=== PATIENT | male | born 1945 | race Hispanic/Latino ===

== ENCOUNTER 2020-12-16 13:26 | Observation (INO) | payer OTHER ==
--- NOTE | 2020-12-16 14:19 | RAD REPORT ---
EXAM DESCRIPTION: RAD - Chest Single View - 12/16/2020 2:04 pm CLINICAL HISTORY: DYSPNEA, abnormal EKG COMPARISON: February 2017 TECHNIQUE: AP portable chest image was obtained 12/16/2020 2:04 pm . FINDINGS: Lung volumes are low accentuating interstitial pattern. No peripheral mass or consolidatio n. No significant failure or volume overload. Lung base atelectasis is present. Heart and vasculature are normal. No measurable pleural effusion and no pneumothorax. No acute bony abnormality seen. No a cute aortic findings suspected. IMPRESSION: Limited portable examination showing lung base atelectasis.
[2020-12-16 14:55] LABS: Absolute Lymphocytes (CBC) 1.5 K/uL (0.7-4.9); Basophils % 0.8 % (0-1.3); Hematocrit 47.8 % (39.6-49.0); Lymphocytes % 15.4 % (15.3-44.8); MPV 9.4 fL (7.6-11.3); RBC Red Blood Cell Count 5.15 M/uL (4.33-5.43)
[2020-12-16 14:58] LABS: Protime INR 0.99
[2020-12-16 15:00] LABS: BUN Blood Urea Nitrogen 16 mg/dL (7-18); Bicarbonate 26 mmol/L (21-32); Glucose Level 110 mg/dL (74-106); NT PRO-BNP 118 pg/mL (<450); Sodium Level 141 mmol/L (136-145); Troponin (Emerg Dept Use Only) < 0.02 ng/mL (0.0-0.045)
--- NOTE | 2020-12-16 15:22 | EDPHYS ---
Physician Documentation [facility] Name: Neftali Beasley Age: 75 yrs Sex: Male : 1945 Arrival Date: 12/16/2020 Time: 13:29 Bed 2 Private MD: ED Physician Gerson Taylor HPI: 12/16 14:16 This 75 yrs old Male presents to ER via Wheelchair with complaints of rn Irregular Pulse. 14:16 The patient has shortness of breath at rest, with light activity. Onset: The rn symptoms/episode began/occurred this morning. Duration: The symptoms are intermittent. The patient's shortness of breath is aggravated by nothing, is alleviated by nothing. Severity of symptoms: At their worst the symptoms were mild in the emergency department the symptoms are unchanged. The patient has not experienced similar symptoms in the past. Reports sob that began today, but wasn't bad, seen by PCP for regular checkup, had abnormal ecg, sent here for ECG, ecg outpt showed afib, pt denies hx of afib. No chest pain. No recent illness. . Historical: - Allergies: 13:33 No Known Allergies; ss - Home Meds: 15:54 "unknown bp" [Active]; Metformin Oral [Active]; tw2 - PMHx: 15:54 Hypertension; Diabetes - NIDDM; poor historian; tw2 - PSHx: 15:54 knee surgery b/l; tw2 - Immunization history:: Adult Immunizations up to date. - Social history:: Smoking status: Patient denies any tobacco usage or history of. - Family history:: not pertinent. - Hospitalizations: : No recent hospitalization is reported. ROS: 14:16 Constitutional: Negative for fever, chills, and weight loss, Eyes: Negative for injury, rn pain, redness, and discharge, Neck: Negative for injury, pain, and swelling, Cardiovascular: Negative for chest pain, and edema, Respiratory: Negative for cough, wheezing, and pleuritic chest pain, Abdomen/GI: Negative for abdominal pain, nausea, vomiting, diarrhea, and constipation, Back: Negative for injury and pain, MS/Extremity: Negative for injury and deformity, Skin: Negative for injury, rash, and discoloration, Neuro: Negative for headache, numbness, tingling, and seizure. Exam: 14:16 Constitutional: Overweight male, no acute distress Head/Face: Normocephalic, rn atraumatic. ENT: No stridor Cardiovascular: Regular rate, irregular rhythm Respiratory: + mild tachypnea, no retractions Abdomen/GI: soft, non-tender Skin: Warm, dry MS/ Extremity: Pulses equal, no cyanosis. Neurovascular intact. Full, normal range of motion. Equal circumference. Neuro: Awake and alert, GCS 15 Vital Signs: 13:30 BP 153 / 64; Pulse 72; Resp 20; Pulse Ox 94% on R/A; tw2 13:32 BP 153 / 64; Pulse 71; Resp 18; Temp 97.7(TE); Pulse Ox 92% on R/A; Weight 131.54 kg; ss Height 5 ft. 6 in. (167.64 cm); Pain 0/10; 14:05 BP 159 / 62; Pulse 66; Resp 20; Pulse Ox 85% on R/A; tw2 14:30 Pulse Ox 94% on 2 lpm NC; tw2 15:10 BP 165 / 53; Pulse 89; Resp 17; Pulse Ox 95% on 2 lpm NC; tw2 15:45 BP 142 / 71; Pulse 50; Resp 19; Pulse Ox 95% on 2 lpm NC; tw2 16:46 BP 142 / 55; Pulse 63; Resp 22; Pulse Ox 94% on 2 lpm NC; tw2 17:38 BP 160 / 55; Pulse 63; Resp 17; Pulse Ox 96% on 2 lpm NC; hb 18:22 BP 98 / 42; Pulse 78; Resp 19; Pulse Ox 95% on 2 lpm NC; hb 19:30 BP 122 / 49; Pulse 69; Resp 17; Pulse Ox 95% on 2 lpm NC; rv 20:17 BP 127 / 68; Pulse 67; Resp 19; Pulse Ox 95% on 2 lpm NC; rv 13:32 Body Mass Index 46.81 (131.54 kg, 167.64 cm) ss 14:05 provider notified, pt placed on 2 L nc, will continue to monitor tw2 MDM: 13:30 Patient medically screened. rn 15:19 Differential diagnosis: Pneumothorax pulmonary edema, angina, arhythmia, afib, rn bigeminy, pulmonary edema. Data reviewed: vital signs, nurses notes, lab test result(s), EKG, radiologic studies, plain films, and as a result, I will admit patient. Counseling: I had a detailed discussion with the patient and/or guardian regarding: the historical points, exam findings, and any diagnostic results supporting the discharge/admit diagnosis, lab results, radiology results, the need for further work-up and treatment in the hospital. Medical screen evaluation completed. EMTALA emergency medical condition absent. Response to treatment: There is no appreciated change of the patient's symptoms at this time, and as a result, I will admit patient. Admission orders: after a detailed discussion of the patient's condition and case, the admit orders are written by me. ED course: Pt with ecg that looks like afib given new onset and assoc with dyspnea, given lovenox, and admitted for cardiology consultation. . 12/16 13:36 Order name: Basic Metabolic Panel; Complete Time: 15:05 rn 12/16 13:36 Order name: CBC with Diff; Complete Time: 15:11 rn 12/16 13:36 Order name: Magnesium; Complete Time: 15: rn 12/16 13:36 Order name: NT PRO-BNP; Complete Time: 15:05 rn 12/16 13:36 Order name: PT-INR; Complete Time: 15:11 rn 12/16 13:36 Order name: Troponin (emerg Dept Use Only); Complete Time: 15:05 rn 12/16 13:36 Order name: XRAY Chest (1 view); Complete Time: 14:21 rn 12/16 13:36 Order name: EKG; Complete Time: 13:37 rn 12/16 15:55 Order name: COVID-19 : Document "Date of Symptom Onset" if Symptomatic. tw2 12/16 15:55 Order name: CORONAVIRUS EDMI 12/16 16:05 Order name: CONS Physician Consult [facility] 12/16 17:31 Order name: SARS-COV-2 RT PCR EDMI 12/16 13:36 Order name: Cardiac monitoring; Complete Time: 15:40 rn 12/16 13:36 Order name: EKG - Nurse/Tech; Complete Time: 15:40 rn 12/16 13:36 Order name: IV Saline Lock; Complete Time: 15:40 rn 12/16 13:36 Order name: Labs collected and sent; Complete Time: 15:40 rn 12/16 13:36 Order name: O2 Per Protocol; Complete Time: 15:40 rn 12/16 13:36 Order name: O2 Sat Monitoring; Complete Time: 15:40 rn 12/16 17:29 Order name: Diet Regular; Complete Time: 17:30 bd Administered Medications: 16:05 Not Given (Patient Refused; ER provider notified and hospitalist): Lovenox 100 mg Sub-Q tw2 once Disposition: 12/16/20 15:21 Hospitalization ordered by Miguel Taylor for Observation. Preliminary diagnosis are Unspecified atrial fibrillation, Dyspnea, unspecified. - Bed requested for Telemetry/MedSurg (observation). - Status is Observation. wh - Condition is Stable. - Problem is new. - Symptoms are unchanged. Signatures: Dispatcher [employer] EDMS Gerson Taylor MD MD rn Smirch, Shelby, RN RN Jennifer Loo RN RN Vicki Hernandez RN RN 2 Evi Messer RN RN Corrections: (The following items were deleted from the chart) 19:51 15:21 Hospitalization Ordered by Miguel Taylor MD for Observation. Preliminary cg diagnosis is Unspecified atrial fibrillation; Dyspnea, unspecified. Bed requested for Telemetry/MedSurg (observation). Status is Observation. Condition is Stable. Problem is new. Symptoms are unchanged. rn 20:41 19:51 12/16/2020 15:21 Hospitalization Ordered by Miguel Taylor MD for Observation. Preliminary diagnosis is Unspecified atrial fibrillation; Dyspnea, unspecified. Bed requested for Telemetry/MedSurg (observation). Status is Observation. Condition is Stable. Problem is new. Symptoms are unchanged. cg
--- NOTE | 2020-12-16 15:22 | ER ---
Nurse's Notes [facility] Name: Neftali Beasley Age: 75 yrs Sex: Male : 1945 Arrival Date: 12/16/2020 Time: 13:29 Bed 2 Private MD: Diagnosis: Unspecified atrial fibrillation;Dyspnea, unspecified Presentation: 12/16 13:30 Chief complaint: pt from out patient EKG department, states his doctor sent him here tw2 because of his EKG interpretation. Chief complaint: Patient states: "im a little short of breath as well, more than normal". Coronavirus screen: shortness of breath, Client presents with at least one sign or symptom that may indicate coronavirus-19. Standard/surgical mask placed on the client. Provider contacted for isolation considerations. Ebola Screen: Patient denies travel to an Ebola-affected area in the 21 days before illness onset. Initial Sepsis Screen: Does the patient meet any 2 criteria? No. Patient's initial sepsis screen is negative. Does the patient have a suspected source of infection? No. Patient's initial sepsis screen is negative. Risk Assessment: Do you want to hurt yourself or someone else? Patient reports no desire to harm self or others. Note provider at bedside at this time. Onset of symptoms was December 16, 2020. 13:30 Method Of Arrival: Wheelchair tw2 13:30 Acuity: ABDULKADIR 2 tw2 13:32 Chief complaint: Patient states: Sent by PCP for irregular EKG. Pt has no complaints at this time. Coronavirus screen: Client denies travel out of the [place] in the last 14 days. Ebola Screen: Patient denies exposure to infectious person. Patient denies travel to an Ebola-affected area in the 21 days before illness onset. Initial Sepsis Screen: Does the patient meet any 2 criteria? No. Patient's initial sepsis screen is negative. Does the patient have a suspected source of infection? No. Patient's initial sepsis screen is negative. Risk Assessment: Do you want to hurt yourself or someone else? Patient reports no desire to harm self or others. Onset of symptoms is unknown. 13:32 Method Of Arrival: Wheelchair Historical: - Allergies: 13:33 No Known Allergies; ss - Home Meds: 15:54 "unknown bp" [Active]; Metformin Oral [Active]; tw2 - PMHx: 15:54 Hypertension; Diabetes - NIDDM; poor historian; tw2 - PSHx: 15:54 knee surgery b/l; tw2 - Immunization history:: Adult Immunizations up to date. - Social history:: Smoking status: Patient denies any tobacco usage or history of. - Family history:: not pertinent. - Hospitalizations: : No recent hospitalization is reported. Screenin:33 Abuse screen: Denies threats or abuse. Denies injuries from another. Nutritional ss screening: No deficits noted. Tuberculosis screening: Never had TB. Fall Risk None identified. Assessment: 13:30 General: Appears in no apparent distress. obese, Behavior is calm, cooperative, tw2 appropriate for age. Pain: Denies pain. Neuro: Level of Consciousness is awake, alert, obeys commands, Oriented to person, place, time, situation. Cardiovascular: Capillary refill < 3 seconds Patient's skin is warm and dry. Respiratory: Reports shortness of breath at rest on exertion since today Airway is patent Respiratory effort is even, unlabored, Respiratory pattern is regular, symmetrical. GI: No signs and/or symptoms were reported involving the gastrointestinal system. Abdomen is round non-distended, obese. : No signs and/or symptoms were reported regarding the genitourinary system. EENT: No signs and/or symptoms were reported regarding the EENT system. Derm: No signs and/or symptoms reported regarding the dermatologic system. Musculoskeletal: Range of motion: intact in all extremities. 13:30 Pain: Pain does not radiate. Pain began suddenly. tw2 14:30 Reassessment: Patient appears in no apparent distress at this time. No changes from tw2 previously documented assessment. Patient and/or family updated on plan of care and expected duration. Pain level reassessed. 15:46 Reassessment: provider Dr. Miguel Taylor at bedside at this time. tw2 16:46 Reassessment: Patient appears in no apparent distress at this time. No changes from tw2 previously documented assessment. Patient and/or family updated on plan of care and expected duration. Pain level reassessed. 17:38 Reassessment: Patient appears in no apparent distress at this time. No changes from hb previously documented assessment. Patient and/or family updated on plan of care and expected duration. Pain level reassessed. 18:21 Reassessment: Patient appears in no apparent distress at this time. No changes from hb previously documented assessment. Patient and/or family updated on plan of care and expected duration. Pain level reassessed. 19:15 Reassessment: Patient appears in no apparent distress at this time. Patient and/or wh family updated on plan of care and expected duration. Pain level reassessed. Patient is alert, oriented x 3, equal unlabored respirations, skin warm/dry/pink. Vital Signs: 13:30 BP 153 / 64; Pulse 72; Resp 20; Pulse Ox 94% on R/A; tw2 13:32 BP 153 / 64; Pulse 71; Resp 18; Temp 97.7(TE); Pulse Ox 92% on R/A; Weight 131.54 kg; ss Height 5 ft. 6 in. (167.64 cm); Pain 0/10; 14:05 BP 159 / 62; Pulse 66; Resp 20; Pulse Ox 85% on R/A; tw2 14:30 Pulse Ox 94% on 2 lpm NC; tw2 15:10 BP 165 / 53; Pulse 89; Resp 17; Pulse Ox 95% on 2 lpm NC; tw2 15:45 BP 142 / 71; Pulse 50; Resp 19; Pulse Ox 95% on 2 lpm NC; tw2 16:46 BP 142 / 55; Pulse 63; Resp 22; Pulse Ox 94% on 2 lpm NC; tw2 17:38 BP 160 / 55; Pulse 63; Resp 17; Pulse Ox 96% on 2 lpm NC; hb 18:22 BP 98 / 42; Pulse 78; Resp 19; Pulse Ox 95% on 2 lpm NC; hb 19:30 BP 122 / 49; Pulse 69; Resp 17; Pulse Ox 95% on 2 lpm NC; rv 20:17 BP 127 / 68; Pulse 67; Resp 19; Pulse Ox 95% on 2 lpm NC; rv 13:32 Body Mass Index 46.81 (131.54 kg, 167.64 cm) ss 14:05 provider notified, pt placed on 2 L nc, will continue to monitor tw2 ED Course: 13:29 Patient arrived in ED. tw2 13:30 Gerson Taylor MD is Attending Physician. rn 13:33 Triage completed. ss 13:33 Arm band placed on right wrist. ss 13:33 Patient has correct armband on for positive identification. Bed in low position. Call light in reach. school lunch monitor on. Pulse ox on. NIBP on. 14:00 Inserted saline lock: 20 gauge in right antecubital area, using aseptic technique. tw2 ,using aseptic technique. JR Cerrato Blood collected. 14:04 XRAY Chest (1 view) In Process Unspecified. EDMS 14:04 X-ray completed. Portable x-ray completed in exam room. Patient tolerated procedure ml well. 14:10 Oxygen administration via nasal cannula \\T\\ 2L/min. tw2 14:10 EKG done, by ED staff, reviewed by Gerson Taylor MD. 3 15:21 Gerson Taylor MD is Hospitalizing Provider. rn 15:21 Miguel Taylor MD is Hospitalizing Provider. rn 15:27 Vicki Hernandez, JR is Primary Nurse. tw2 19:14 Primary Nurse role handed off by Vicki Hernandez, JR mw2 20:17 Miah Mtz, JR is Primary Nurse. rv 20:19 No provider procedures requiring assistance completed. IV is patent, with fluids rv infusing freely, Patient admitted, IV remains in place. Administered Medications: 16:05 Not Given (Patient Refused; ER provider notified and hospitalist): Lovenox 100 mg Sub-Q tw2 once Outcome: 15:21 Decision to Hospitalize by Provider. rn 20:19 Admitted to Med/surg accompanied by tech, via stretcher, room 212, Other SBAR, EKG Report called to Ashely NORRIS 20:19 Condition: good 20:19 Instructed on the need for admit. 20:41 Patient left the ED. Signatures: Dispatcher [employer] EDTN Ellei Iraheta Roman, MD MD rn Smirch, Shelby, RN RN Blossom Young RN RN Vicki Hernandez RN RN tw2 Vanita Godoy 3 Evi Messer RN RN Eliu Wiggins 2 Miah Mtz, JR RN rv Corrections: (The following items were deleted from the chart) 13:35 13:32 Acuity: ABDULKADIR 3 ss tw2 14:10 14:05 BP 159 / 62; Pulse 66bpm; Resp 20bpm; Pulse Ox 85% RA; provider notified; tw2 tw2 20:41 20:19 Admitted to Med/surg accompanied by tech, via stretcher, room 212, Other SBAR, wh EKG Report called to MARIETTA NORRIS rv
[2020-12-16] MEDS ORDERED: ENOXAPARIN 100 MG/ML SYR SQ ONE (15:39)
--- NOTE | 2020-12-16 16:07 | P.HP ---
Certification for Inpatient Patient admitted to: Observation With expected LOS: <2 Midnights Practitioner: I am a practitioner with admitting privileges, knowledge of patient current condition, hospital course, and medical plan of care. Services: Services provided to patient in accordance with Admission requirements found in Title 42 Section 412.3 of the Code of Federal Regulations Patient History Date of Service: 12/16/20 Reason for admission: Dyspnea, irregular rhythm History of Present Illness: 75yo M, PMH: DM 2 (non insulin depended), HTN, and patient is unsure of the rest of his past medical history. He is a poor historian. He states he has had with worsened dyspnea over the past 24 hr. He is only able to walk 20-30 feet, where previously he could walk much further. He saw his PCP for a routine visit today, was noted to have an irregular rhythm and was sent to the ED. In the ED, and the monitor was concerning for atrial fibrillation, however EKGs revealed some sinus bradycardia PACs, possibly a bifascicular block. Patient was unsure if he has ever had this before. He states he saw her clay artist many years ago and was told not to worry about something, but he is unsure what that "something" is. Lab work was otherwise unremarkable. CXR okay as well. BNP normal. He also reports recently unable to put his shoes on due to inability to bend down. He attributes that to being out of shape / his abdomen. Does not have this difficulty 3 weeks ago. Patient otherwise denies any recent fevers, chills, chest pain, abdominal pain, dysuria, diarrhea. - Past Medical/Surgical History -: [id number] diabetes -: HTN -: Bilateral knee surgery -: Tonsillectomy - Social History Smoking Status: Former smoker (Quit several decades ago) Alcohol use: No Place of Residence: Home Review of Systems 10-point ROS is otherwise unremarkable Physical Examination - Physical Exam General: Alert, In no apparent distress, Oriented x3, Obese HEENT: Sclerae nonicteric Respiratory: Diminished (At bases bilaterally, otherwise clear) Cardiovascular: Edema (Trace-1+ to the mid tibia), Irregular heart rate/rhythm Gastrointestinal: Soft and benign, Non-distended, No tenderness Musculoskeletal: No erythema, No tenderness Integumentary: No rashes Neurological: Normal speech, Normal affect - Studies Laboratory Data (last 24 hrs) 12/16/20 14:30: PT 11.4, INR 0.99 12/16/20 14:30: WBC 9.70, Hgb 16.0, Hct 47.8, Plt Count 193 12/16/20 14:30: Sodium 141, Potassium 4.0, BUN 16, Creatinine 1.24, Glucose 110 H, Magnesium 2.0 Assessment and Plan - Advance Directives Does patient have a Living Will: No Does patient have a Durable POA for Healthcare: No Physician Review Additional Text: Problem list Dyspnea on exertion Irregular rhythm, PACs, bifascicular block DM2, non-insulin dependent HTN ?CHF -will bring patient in for obs, monitor on telemetry -possible history of CHF - can lead to [place], reports "water pill" at home but unsure what or how much -will obtain echocardiogram -BNP ok, CXR ok -will consult cardiology regarding rhythm -will need to obtain home medications and restart as appropriate -patient does not seem significantly volume overloaded -consult PT VTE: lovenox code: DNR Dispo: anticipate dc home tomorrow pending improvement Time Spent Managing Pts Care (In Minutes): 60
[2020-12-16] MEDS: INSULIN -REGULAR HUMAN 50 UNIT/0.5 ML ML SQ SCH (21:00)
[2020-12-16 21:24] LABS: Troponin I < 0.02 ng/mL (0.0-0.045)
[2020-12-16 22:26] VITALS: BMI 46.8
[2020-12-17 03:46] LABS: Absolute Lymphocytes (CBC) 1.5 K/uL (0.7-4.9); Basophils % 1.1 % (0-1.3); Hematocrit 45.8 % (39.6-49.0); MPV 9.7 fL (7.6-11.3); RBC Red Blood Cell Count 4.86 M/uL (4.33-5.43)
[2020-12-17 03:52] LABS: Albumin 3.7 g/dL (3.4-5.0); Bilirubin Total 0.5 mg/dL (0.2-1.0); Magnesium 1.9 mg/dL (1.8-2.4); Potassium 3.6 mmol/L (3.5-5.1); Protein, Total 6.7 g/dL (6.4-8.2)
[2020-12-17] MEDS: carvediloL 12.5 MG TAB PO SCH ×2 (06:03→17:52)
[2020-12-17] MEDS: AMLODIPINE 10 MG TAB PO SCH (06:03)
[2020-12-17] MEDS: INSULIN -REGULAR HUMAN 50 UNIT/0.5 ML ML SQ SCH ×4 (07:30→20:37)
[2020-12-17 08:44] LABS: Urine Appearance CLEAR; Urine Blood NEGATIVE (NEG); Urine Color YELLOW; Urine Glucose NEGATIVE (NEG); Urine Protein 2+ (NEG); Urine Specific Gravity 1.025 (1.005-1.030); Urine pH 5.5 (5.0-7.0)
[2020-12-17 08:50] LABS: Urine Bilirubin 1+ (NEG); Urine Microscopic Reflex ORDER UMIC
[2020-12-17 08:58] LABS: Urine Bacteria NONE SEEN /HPF (NONE SEEN); Urine RBC <5 /HPF (NONE SEEN)
[2020-12-17 08:59] LABS: Urine Mucus MOD /HPF (NONE SEEN)
[2020-12-17] MEDS ORDERED: POTASSIUM 25 MEQ EFFERV TAB PO ONE (09:00)
[2020-12-17] MEDS: ENOXAPARIN 40 MG/0.4 ML SQ SCH (09:15)
[2020-12-17] MEDS: lisinopriL 20 MG TAB PO SCH (09:19)
--- NOTE | 2020-12-17 16:18 | P.PN ---
Subjective Date of Service: 12/17/20 Chief Complaint: Dyspnea, irregular rhythm Patient denies any complain. He denies shortness of breath at this time. His blood pressure was severely elevated in the morning. Systolic BP has now improved to the 150s. Physical Examination - Vital Signs Temperature: 98.0 F Blood Pressure: 153/70 Pulse: 68 Respirations: 16 Pulse Ox (%): 94 - Physical Exam General: In no apparent distress, Oriented x3, Obese HEENT: Mucous membr. moist/pink, EOMI Neck: Supple, JVD not distended Respiratory: Clear to auscultation bilaterally, Normal air movement, Diminished Cardiovascular: Normal S1 S2, Edema (Trace bilateral lower extremity edema), Irregular heart rate/rhythm Gastrointestinal: Normal bowel sounds, Soft and benign, Non-distended, No tenderness Musculoskeletal: No swelling, No tenderness Integumentary: No rashes, No erythema Neurological: Normal speech, Normal strength at 5/5 x4 extr, Cranial nerves 3-12 intact Assessment And Plan - Current Problems (Diagnosis) (1) Dyspnea Current Visit: Yes Status: Acute (2) Accelerated hypertension Current Visit: Yes Status: Acute (3) Abnormal EKG Current Visit: Yes Status: Acute (4) Diabetes mellitus type 2 in obese Current Visit: Yes Status: Acute (5) Morbid obesity Current Visit: Yes Status: Acute - Plan Troponin trended negative. Patient states his symptoms have resolved. Echocardiogram completed, result is pending. Cardiology-Dr. Aleman to evaluate. Chest x-ray shows atelectasis. Continue current antihypertensives. Daily weight. Jacquelin [email or web address]
--- NOTE | 2020-12-17 18:43 | EKG ---
Test Date: 2020-12-16 Test Time: 14:40:48 Building Code Administrator: KENIA MEASUREMENT RESULTS: Intervals: Rate: 68 [place]: QRSD: 160 QT: 492 QTc: 523 [place]: P: [place]: QRS: 162 T: 25 INTERPRETIVE STATEMENTS: Atrial fibrillation with a competing junctional pacemaker with premature ventricular or aberrantly conducted complexes Right bundle branch block Left posterior fascicular block Bifascicular block Inferior infarct, age undetermined Abnormal ECG Compared to ECG 12/16/2020 13:00:27 Left posterior fascicular block now present Bifascicular block now present Myocardial infarct finding still present Electronically Signed On 12-17-20 18:40:29 SURVEILLANCE OPERATOR by Rk Aleman
[2020-12-17] MEDS: HYDRALAZINE HCL 25 MG TABLET PO SCH (20:36)
[2020-12-18] MEDS: carvediloL 12.5 MG TAB PO SCH ×2 (05:36→17:08)
[2020-12-18 05:58] LABS: Absolute Lymphocytes (CBC) 1.3 K/uL (0.7-4.9); Basophils % 0.6 % (0-1.3); Hematocrit 43.5 % (39.6-49.0); Lymphocytes % 20.2 % (15.3-44.8); MPV 9.2 fL (7.6-11.3); RBC Red Blood Cell Count 4.67 M/uL (4.33-5.43)
[2020-12-18 06:12] LABS: Phosphorus 3.3 mg/dL (2.5-4.9)
--- NOTE | 2020-12-18 07:03 | CON ---
Date of Consultation: 12/17/[address] Silva's service on 12/16/2020. Reason For Consultation: Congestive heart failure. History Of Present Illness: Mr. Beasley is a 75-year-old male with history of obesity, hypertension , diabetes, and dyslipidemia. He came in with shortness of breath, pedal edema, PND, orthopnea. Den ied any chest pain, nausea, vomiting, diaphoresis. Denied any palpitation or syncope. He was initia lly thought to be in atrial fibrillation and his EKG was suspicious, but on further inspection it rev ealed sinus bradycardia with PACs with a right bundle branch pattern. He had a remote myocardial inf arction. Past Medical History: As stated above. Allergies: NONE. Review of Systems: Positive for him being a do not resuscitate. Social History: Negative. Family History: Noncontributory. Medications: At home include glyburide with metformin combination, hydrochlorothiazide, Actos, Zocor , Vasotec, Norvasc, metoprolol, and hydralazine. Physical Examination: Vital Signs: He is obese, but his vital signs are stable. He was in sinus bradycardia with PACs. HEENT: Negative. Neck: Supple without any bruit, lymphadenopathy, JVD, or thyromegaly. Chest: Reveals some rales at bases. Cardiac: Revealed a regular rhythm and rate with an S4 gallops. No murmurs or rubs. Abdomen: Obese but benign. Extremities: Revealed 2 to 3+ edema. Diagnostic Data: As listed earlier. Impression And Plan: 1.Possible acute on chronic diastolic congestive heart failure exacerbation. 2.Hypertension. 3.Obesity. 4.Diabetes. 5.Dyslipidemia. 6.Do not resuscitate status. I agree with the 2D echocardiogram. He should be on IV Lasix. He is already on ANY inhibitor, calci um channel blockers as well as a beta-charisse. Mr. Beasley eventually will need a stress test once the congestive heart failure resolved. We will continue to follow him along. NOAM/DAVINA Voice ID: [id number] Report ID: [id number]
[2020-12-18] MEDS: INSULIN -REGULAR HUMAN 50 UNIT/0.5 ML ML SQ SCH ×4 (07:30→21:00)
[2020-12-18] MEDS ORDERED: FUROSEMIDE 40 MG/4 ML VIAL IV ONE (08:35)
[2020-12-18] MEDS: hydroCHLOROthiazide 12.5 MG CAP PO SCH (08:45)
[2020-12-18] MEDS: AMLODIPINE 10 MG TAB PO SCH (08:45)
[2020-12-18] MEDS: lisinopriL 20 MG TAB PO SCH (08:45)
[2020-12-18] MEDS: HYDRALAZINE HCL 25 MG TABLET PO SCH ×2 (08:45→21:37)
[2020-12-18] MEDS: ENOXAPARIN 40 MG/0.4 ML SQ SCH (08:46)
--- NOTE | 2020-12-18 11:56 | EKG ---
Test Date: 2020-12-17 Test Time: 09:44:04 Pc Technician: SHILPA MEASUREMENT RESULTS: Intervals: Rate: 68 [place]: QRSD: 154 QT: 464 QTc: 493 [place]: P: [place]: QRS: 165 T: 37 INTERPRETIVE STATEMENTS: SB/PAC Right bundle branch block Left posterior fascicular block Bifascicular block Abnormal ECG Compared to ECG 12/16/2020 14:40:48 Ventricular premature complex(es) no longer present Myocardial infarct finding no longer present Bifascicular block still present Electronically Signed On 12-18-20 11:54:03 ENGINE ROOM OPERATOR by Rk Aleman
--- NOTE | 2020-12-18 11:58 | ECHO ---
HEIGHT: 5 ft 6 in WEIGHT: 290 lb 4.8 oz DATE OF STUDY: 12/17/[address]: Miguel Taylor MD 2-DIMENSIONAL: YES M.MODE: YES DOPPLER: YES COLOR FLOW: YES TDS: YES PORTABLE: DEFINITY: BUBBLE STUDY: DIAGNOSIS: ARRHYTHMIA CARDIAC HISTORY: CATHERIZATION: SURGERY: PROSTHETIC VALVE: PACEMAKER: MEASUREMENTS (cm) DIASTOLIC (NORMALS) SYSTOLIC (NORMALS) IVSd 1.3 (0.6-1.2) LA Diam 4.8 (1.9-4.0) LVEF 53% LVIDd 5.4 (3.5-5.7) LVIDs 3.9 (2.0-3.5) %FS 28% LVPWd 1.5 (0.6-1.2) Ao Diam 3.0 (2.0-3.7) 2 DIMENSIONAL ASSESSMENT: RIGHT ATRIUM: NORMAL LEFT ATRIUM: DILATED RIGHT VENTRICLE: NORMAL LEFT VENTRICLE: LEFT VENTRICULAR HYPERTROPHY TRICUSPID VALVE: NORMAL MITRAL VALVE: NORMAL PULMONIC VALVE: NORMAL AORTIC VALVE: NORMAL PERICARDIAL EFFUSION: NONE AORTIC ROOT: NORMAL LEFT VENTRICULAR WALL MOTION: DIASTOLIC DYSFUNCTION DOPPLER/COLOR FLOW: NORMAL COMMENTS: DIASTOLIC DYSFUNCTION. NORMAL LEFT VENTRICULAR EJECTION FRACTION. LEFT VENTRICULAR HYPERTROPHY CONCENTRIC. LEFT ATRIAL ENLARGEMENT. TECHNOLOGIST: GARRY WADE
--- NOTE | 2020-12-18 15:52 | P.PN ---
Subjective Date of Service: 12/18/20 Chief Complaint: Dyspnea, irregular rhythm Patient denies any complain. He denies shortness of breath at this time. His blood pressure has improved. He is requiring oxygen. Physical Examination - Vital Signs Temperature: 97.8 F Blood Pressure: 142/51 Pulse: 70 Respirations: 20 Pulse Ox (%): 97 - Physical Exam General: Alert, In no apparent distress, Oriented x3 Neck: Supple, JVD not distended Respiratory: Diminished, Crackles/rales (Mild bibasilar crackles) Cardiovascular: Regular rate/rhythm, Normal S1 S2, Edema (Trace bilateral lower extremity edema) Gastrointestinal: Soft and benign, Non-distended, No tenderness Musculoskeletal: No swelling, No erythema Integumentary: No rashes Neurological: Normal speech, Normal strength at 5/5 x4 extr, Cranial nerves 3-12 intact Assessment And Plan - Current Problems (Diagnosis) (1) Dyspnea Current Visit: Yes Status: Acute (2) Accelerated hypertension Current Visit: Yes Status: Acute (3) Abnormal EKG Current Visit: Yes Status: Acute (4) Diabetes mellitus type 2 in obese Current Visit: Yes Status: Acute (5) Morbid obesity Current Visit: Yes Status: Acute - Plan Troponin trended negative. Patient states his symptoms have resolved. Echocardiogram completed. It did report normal EF and left ventricular hypertrophy. Cardiology-Dr. Aleman input appreciated. Continue IV Lasix. I suspect patient also has obesity hypoventilation. Chest x-ray shows atelectasis. Continue current antihypertensives. Arranged for home oxygen. Physician Review Additional Text: Problem list Dyspnea on exertion Irregular rhythm, PACs, bifascicular block DM2, non-insulin dependent HTN ?CHF -will bring patient in for obs, monitor on telemetry -possible history of CHF - can lead to [facility], reports "water pill" at home but unsure what or how much -will obtain echocardiogram -BNP ok, CXR ok -will consult cardiology regarding rhythm -will need to obtain home medications and restart as appropriate -patient does not seem significantly volume overloaded -consult PT VTE: lovenox code: DNR Dispo: anticipate dc home tomorrow pending improvement
[2020-12-18 17:04] LABS: Arterial Blood Carboxyhemoglob 1.1 % (0-1.5); Blood Gas Oxyhemoglobin 90.2 % (94-97); Blood O2 Saturation 91.9 % (92-98.5)
--- NOTE | 2020-12-18 17:14 | P.DS ---
Admission Date: 12/16/20 Discharge Date: 12/19/20 Disposition: ROUTINE DISCHARGE Discharge Condition: FAIR Reason for Admission: Dyspnea, irregular rhythm Consultations: Cardiology-Dr. Aleman - Problems (1) Dyspnea Status: Acute (2) Accelerated hypertension Status: Acute (3) Abnormal EKG Status: Acute (4) Diabetes mellitus type 2 in obese Status: Acute (5) Morbid obesity Status: Acute Brief History of Present Illness: 75-year-old morbidly obese gentleman with a history of diabetes mellitus and hypertension went to see his PCP with a complaint progressive shortness of breath. PCP noted patient's heart rhythm is irregular and therefore sent him to the emergency department for evaluation. Initial EKG done in the emergency department suggested atrial fibrillation. Subsequent EKG demonstrated sinus bradycardia with multiple PACs. Patient was dyspneic in the ED. Chest x-ray demonstrated atelectasis. Patient suspected to have CHF. He was hospitalized for further monitoring and management of CHF. Hospital Course: Patient admitted to the medical floor and treated with IV Lasix. Echocardiogram was performed which reported normal EF. Patient diagnosed with acute on chronic diastolic heart failure. It was seen in consultation by cardiology-Dr. Aleman with the time in the patient's EKG was sinus bradycardia with PACs and not AFib. Patient was hypoxic on room air and required about 3 L of oxygen by nasal cannula to maintain his oxygen saturation above 90%. Arterial blood gases done showed only mild CO2 retention. CTA thorax done was negative for pulmonary embolus. Noted patient was severely hypertensive with systolic blood pressure in the 200s. His home antihypertensives were resumed. His blood pressure responded well and is currently normotensive. Vital Signs/Physical Exam: Temp Pulse Resp BP Pulse Ox 97.8 F 70 20 142/51 H 97 12/18/20 15:52 12/18/20 15:52 12/18/20 15:52 12/18/20 15:52 12/18/20 15:52 Laboratory Data at Discharge: WBC 6.50 K/uL (4.3-10.9) D 12/18/20 05:28 Hgb 14.6 g/dL (13.6-17.9) 12/18/20 05:28 Hct 43.5 % (39.6-49.0) 12/18/20 05:28 Plt Count 177 K/uL (152-406) 12/18/20 05:28 PT 11.4 SECONDS (9.5-12.5) 12/16/20 14:30 INR 0.99 12/16/20 14:30 Sodium 143 mmol/L (136-145) 12/18/20 05:28 Potassium 4.0 mmol/L (3.5-5.1) 12/18/20 05:28 BUN 15 mg/dL (7-18) 12/18/20 05:28 Creatinine 1.04 mg/dL (0.55-1.3) 12/18/20 05:28 Glucose 138 mg/dL (74-106) H 12/18/20 05:28 Phosphorus 3.3 mg/dL (2.5-4.9) 12/18/20 05:28 Magnesium 1.9 mg/dL (1.8-2.4) 12/17/20 02:53 Total Bilirubin 0.5 mg/dL (0.2-1.0) 12/17/20 02:53 AST 12 U/L (15-37) L 12/17/20 02:53 ALT 28 U/L (12-78) 12/17/20 02:53 Alkaline Phosphatase 46 U/L (45-117) 12/17/20 02:53 Troponin I < 0.02 ng/mL (0.0-0.045) 12/17/20 09:03 Triglycerides 144 mg/dL (<150) 12/17/20 02:53 Cholesterol 136 mg/dL (<200) 12/17/20 02:53 HDL Cholesterol 37 mg/dL (40-60) L 12/17/20 02:53 Cholesterol/HDL Ratio 3.68 12/17/20 02:53 Home Medications: Amlodipine [Norvasc*] 1 tab PO DAILY 12/17/20 Glyburide/Metformin HCl [Glucovance 2.5-500 mg Tablet] 1 tab PO TID 12/17/20 Hydralazine [Apresoline*] 1 tab PO BID 12/17/20 Metoprolol Tartrate 1 tab PO BID 12/17/20 Pioglitazone [Actos*] 1 tab PO DAILY 12/17/20 Simvastatin 1 tab PO DAILY 12/17/20 hydroCHLOROthiazide [Hydrochlorothiazide] 1 tab PO DAILY 12/17/20 Furosemide [Lasix] 40 mg PO DAILY #30 tab 12/18/20 Enalapril Maleate 10 mg PO DAILY 30 Days #60 tablet 12/19/20 New Medications: Enalapril Maleate 10 mg PO DAILY 30 Days #60 tablet Furosemide [Lasix] 40 mg PO DAILY #30 tab Diet: ADA Activity: Ad rhoith Followup: Giuliano Sol MD [Primary Care Provider] - 1 Week
--- NOTE | 2020-12-18 20:21 | RAD REPORT ---
EXAM DESCRIPTION: CT - Chest For Pe Angio - 12/18/2020 5:37 pm CLINICAL HISTORY: Hypoxia COMPARISON: None. TECHNIQUE: Dynamically enhanced axial 3 mm thick images of the chest were obtained during administra tion of <100> mL Isovue 370 IV contrast. Coronal and oblique reconstruction images were generated and reviewed. Exam utilizes a protocol for optimal evaluation of pulmonary arterial tree. Maximum intensity projections 3D imaging was utilized All CT scans are performed using dose optimization technique as appropriate and may include automated exposure control or mA/KV adjustment according to patient size. FINDINGS: A pulmonary embolus is not seen. A thoracic aortic aneurysm is not noted. A pleural effusion is not seen. A pericardial effusion is not seen. An area of subsegmental atelectasis right middle lobe. Calcified granuloma right lung Possible nodule left lobe thyroid gland IMPRESSION: Negative for a pulmonary embolism. Possible nodule left lobe of the thyroid gland. Ultrasound recommended
[2020-12-19] MEDS: carvediloL 12.5 MG TAB PO SCH (06:00)
[2020-12-19] MEDS: INSULIN -REGULAR HUMAN 50 UNIT/0.5 ML ML SQ SCH (07:30)
[2020-12-19] MEDS: lisinopriL 20 MG TAB PO SCH (08:47)
[2020-12-19] MEDS: ENOXAPARIN 40 MG/0.4 ML SQ SCH (08:47)
[2020-12-19] MEDS: hydroCHLOROthiazide 12.5 MG CAP PO SCH (08:48)
[2020-12-19] MEDS: HYDRALAZINE HCL 25 MG TABLET PO SCH (08:48)
[2020-12-19] MEDS: AMLODIPINE 10 MG TAB PO SCH (08:48)
[2020-12-19 08:49] VITALS: BP 140/60
[2020-12-19 09:41] VITALS: TEMP 97.8
[2020-12-19 09:54] VITALS: O2SAT 92
--- NOTE | 2020-12-22 10:37 | PN ---
Date of Progress Note: 12/18/2020 Subjective: Mr. Beasley had come in with acute diastolic congestive heart failure. He is a do not resuscitate. He has hypertension, diabetes, dyslipidemia, obesity. He is on appropriate therapy. Rocco maier is on glyburide with metformin, hydrochlorothiazide, Zocor, Vasotec, Norvasc, metoprolol, and hydra lazine. I certainly think he can go home today, but I think his Actos should be discontinued. I thi nk his hydrochlorothiazide should be changed to Lasix. Consider increasing metoprolol and discontinu e Norvasc down the road. He is in sinus rhythm. His blood pressure is still elevated. He is still anemic. His creatinine is 1.58. He needs to have close followup as an outpatient with Cardiology, I nternal Medicine as well as Nephrology. I will sign off his case for now. NOAM/DAVINA Voice ID: [id number] Report ID: [id number]
== END 2020-12-19 11:59 | disposition home or self-care (01) ==
LOC: ER 13:26 → ERHOLD 16:12 → 2ND 20:20
PROVIDERS: ADMIT Hospitalist; ATTEND Internal Medicine
DX: I11.0 Hypertensive heart disease with heart failure (principal); I50.33 Acute on chronic diastolic (congestive) heart failure; R94.31 Abnormal electrocardiogram [ECG] [EKG]; Z20.822 Contact with and (suspected) exposure to COVID-19; E11.9 Type 2 diabetes mellitus without complications; E66.01 Morbid (severe) obesity due to excess calories; R09.02 Hypoxemia; I45.2 Bifascicular block; I49.1 Atrial premature depolarization; Z66 Do not resuscitate; E78.5 Hyperlipidemia, unspecified; Z87.891 Personal history of nicotine dependence; Z68.42 Body mass index [BMI] 45.0-49.9, adult; Z79.84 Long term (current) use of oral hypoglycemic drugs
CPT/HCPCS: 93005 ×3; 93306; 85025 ×3; 80048 ×2; 36415 ×2; 83735 ×2; 84100; 85610; 80061; 82947 ×11; 84443; 84484 ×4; 84439; 80053; 83880; 71275; 71045; 97116; 97161; 82805; 94760 ×5; 99285; U0003; Q9967; J1940; J1650 ×3; G0378 ×6; 81003; 81015